=== PATIENT | female | born 1960 ===

== ENCOUNTER 2021-09-06 12:39 | Emergency (ER) | payer SELFPAY ==
[~2021-09-06] VITALS: Ht 160 cm; Wt 104.3 kg
[2021-09-06 13:01] VITALS: BP 138/83
== END 2021-09-06 15:36 | disposition left against medical advice (07) ==
LOC: ER 12:39
DX: H92.01 Otalgia, right ear (principal); Z53.21 Procedure and treatment not carried out due to patient leaving prior to being seen by health care provider